=== PATIENT | female | born 1975 | race Caucasian/White ===

== ENCOUNTER 2023-04-27 00:53 | Emergency (ER) | payer BC ==
[~2023-04-27] VITALS: Ht 157.5 cm; Wt 109.0 kg
[2023-04-27 01:11] VITALS: BP 158/83; PULSE 82; TEMP 98.5; O2SAT 99
[2023-04-27] MEDS ORDERED: NEOM1OIN8 TOP (02:57)
[2023-04-27] MEDS ORDERED: CEPH-585 PO (02:57)
[2023-04-27] MEDS: cephalexin 250mg capsule PO ONE (03:30)
[2023-04-27] MEDS: HYDROcodone/acetaminophen 5mg/325mg tablet PO ONE (03:30)
[2023-04-27] MEDS: TETanus/Pertussis (Acell)/Diphther VAC/PF (Tdap-Adult) 0.5ml syringe IMVAC ONE (03:31)
[2023-04-27] MEDS: gentamicin 0.1% topical ointment 15gm TP SCH (03:32)
[2023-04-27 03:33] VITALS: RESP 18
== END 2023-04-27 03:36 | disposition home or self-care (01) ==
LOC: ER 00:56
DX: T25.231A Burn of second degree of right toe(s) (nail), initial encounter (principal); Z88.0 Allergy status to penicillin; Z79.2 Long term (current) use of antibiotics; X12.XXXA Contact with other hot fluids, initial encounter; Y93.89 Activity, other specified; Y92.89 Other specified places as the place of occurrence of the external cause; Y99.8 Other external cause status
CPT/HCPCS: 16000; 90471; 90715; 99284

== ENCOUNTER 2023-07-10 16:56 | Emergency (ER) | payer BC ==
[~2023-07-10] VITALS: Ht 160 cm; Wt 107.3 kg
[~2023-07-10 16:56] MED LIST: CEPH-585 PO; NEOM1OIN8 TOP
[2023-07-10 17:15] VITALS: BP 169/86; PULSE 74; RESP 16; TEMP 97.6; O2SAT 98
== END 2023-07-10 19:06 | disposition home or self-care (01) ==
LOC: ER 16:57
DX: S93.601A Unspecified sprain of right foot, initial encounter (principal); Z88.0 Allergy status to penicillin; Z79.2 Long term (current) use of antibiotics; W01.0XXA Fall on same level from slipping, tripping and stumbling without subsequent striking against object, initial encounter; Y93.89 Activity, other specified; Y92.89 Other specified places as the place of occurrence of the external cause; Y99.8 Other external cause status
CPT/HCPCS: 73630; 99283

== ENCOUNTER 2024-01-03 14:28 | Emergency (ER) | payer BC ==
[~2024-01-03] VITALS: Ht 157.5 cm; Wt 108.7 kg
[2024-01-03] MEDS ORDERED: IBUP-864 PO (15:17)
[2024-01-03 15:23] VITALS: BP 146/84; PULSE 79; RESP 17; TEMP 98; O2SAT 99
== END 2024-01-03 15:24 | disposition home or self-care (01) ==
LOC: ER 14:29
DX: S40.011A Contusion of right shoulder, initial encounter (principal); S40.012A Contusion of left shoulder, initial encounter; S80.02XA Contusion of left knee, initial encounter; Z88.0 Allergy status to penicillin; Z88.1 Allergy status to other antibiotic agents; Z79.2 Long term (current) use of antibiotics; W18.30XA Fall on same level, unspecified, initial encounter; Y93.89 Activity, other specified; Y92.89 Other specified places as the place of occurrence of the external cause; Y99.8 Other external cause status
CPT/HCPCS: 73030; 73564; 99284

== ENCOUNTER 2025-01-03 21:07 | Emergency (ER) | payer SELFPAY ==
[~2025-01-03 21:07] MED LIST changes: -CEPH-585 PO; +IBUP-864 PO
[2025-01-03 21:09] VITALS: BP 172/85; TEMP 98.2
--- NOTE | 2025-01-03 21:16 | Physician Documentation ---
History of Present Illness ~ Chief Complaint: Asthma Stated Complaint: ASTHMA ATTACK Time Seen by MD: 21:12 HPI 81-year-old female presents to the emergency department for evaluation of shortness of breath with a worsening for the last 3-4 days. She has a chronic smoker. Patient has known history of asthma and bleed to have COPD. She has been with the albuterol inhaler and/or nebulizer. Speaking in nearly complete sentences. No reported fever, recent travels or hospitalizations. Medication Reconciliation Allergies: Coded Allergies: Penicillins (Verified Allergy, Unknown, 07/10/23) Uncoded Allergies: PENICILLIN (Allergy, Unknown, 04/27/23) Scheduled Albuterol Sulfate (Ventolin Hfa), 2 PUFFS INH Q4HPRN Albuterol Sulfate Nebs* (Proventil Nebs*), 1 VIAL NEB Q6H Azithromycin (Zithromax), 1 TAB PO DAILY Ibuprofen (Ibu), 1 TAB PO Q8H Neomy Sulf/Bacitrac Zn/Poly (Triple Antibiotic Ointment), 1 APPLIC TOP TID Prednisone* (Prednisone*), 3 TAB PO DAILY Past Medical History Past Medical History: No Pertinent History Past Surgical History: noncontributory Alcohol Use: None Drug Use: none Lives with: Spouse Lives In: Home Review of Systems All Other Systems at this time: Reviewed and Negative Constitutional: Reports: malaise; Denies: chills, fever Respiratory: Reports: see HPI, cough, shortness of breath, SOB at rest Cardiovascular: Reports: no symptoms reported Gastrointestinal: Reports: no symptoms reported Physical Exam Vital Signs: RN Vital Signs have been reviewed: Yes, Temperature: 98.2, Source: Temporal, Heart Rate: 85, Respiratory Rate: 18, BP: 172/85, Pulse Oximetry: 97 Oxygen Flow Rate: 0 General Appearance: alert, WD/WN, mild distress Neck: normal inspection EENT: normal ENT inspection Respiratory: rhonchi, wheezing Chest: no accessory muscle use Cardiovascular: normal peripheral pulses Gastrointestinal: non-tender Extremities: normal inspection, no calf tenderness Skin: normal color Neurologic: oriented x4 Psychiatric: appropriate Progress Results/Orders Results/Orders Orders - REMINGTON PENA PAC * Rt Notification Q1H (01/03/25 21:14) Chest,Single View (01/03/25 21:20) Completed Orders - BECKY,REMINGTON C PAC Albuterol 2.5mg/3ml Nebule (Proventil 2. (01/03/25 21:15) Prednisone Tablet (Prednisone Tablet) (01/03/25 21:15) Azithromycin Tablet (Zithromax Tablet) (01/03/25 21:15) Chest,Single View (01/03/25 21:20) Medications Received in ER Medications (Trade) Dose Ordered Sig/John Route PRN Reason Start Time Stop Time Status Last Admin Dose Admin (Proventil 2.5 MG/3ML nebule) 2.5 mg ONCE ONCE NEB 01/03/25 21:15 01/03/25 21:18 DC 01/03/25 21:48 2.5 MG (predniSONE tablet) 60 mg ONCE ONCE PO 01/03/25 21:15 01/03/25 21:18 DC 01/03/25 21:33 60 MG (Zithromax tablet) 500 mg ONCE ONCE PO 01/03/25 21:15 01/03/25 21:18 DC 01/03/25 21:33 500 MG Vital Signs 01/03/25 01/03/25 01/03/25 21:09 21:48 22:07 Temp 98.2 Pulse 85 85 87 Resp 18 20 18 B/P (MAP) 172/85 Pulse Ox 97 96 96 O2 Delivery Room Air* Room Air* O2 Flow Rate 0 0 0 FiO2 21 21 Medical Decision Making Additional information obtaine: old records, family Findings 49-year-old female with a known history of reactive airway disease with worsening shortness breath over the last 24 days. Will initiate albuterol nebulizer therapy in the emergency department along with oral prednisone and azithromycin. Chest x-ray imaging obtained to evaluate for PNA other unforeseen pulmonary etiologies. Chest x-ray imaging without lobar infiltrates, effusion or pneumothoraces. Patient with increased forced expiratory volume after nebulization of albuterol. Received 1st dose prednisone & azithromycin and strcit aftercare prescriptions. She was discharged without hypoxia and/or acute shortness of breath. Discharged in safe stable condition with encouragement to continue with the efforts of smoking cessation. Heart Score: 0 Differential Dx:Considerations: Include: asthma (Working diagnosis), bronchitis (We will begin antibiotic therapy due to chronic smoking history), CHF (Unlikely), COPD (Likely), pneumonia, respiratory failure (Unlikely) Departure Disposition: HOME / SELF CARE / HOMELESS Impression: Primary Impression: Acute bronchitis Qualified Codes: J20.9 - Acute bronchitis, unspecified Additional Impressions: Asthma exacerbation Qualified Codes: J45.31 - Mild persistent asthma with (acute) exacerbation Asthma exacerbation in COPD Condition: Improved Discharge Instructions: Acute Bronchitis, Adult, Asthma Attack Prevention, Adult Additional Instructions: Today in the emergency department you received youth chest x-ray imaging which was reassuring for no pneumonia. You received 1st dose antibiotic and albuterol with the prednisone for suspected bronchitis with asthma exacerbation. Please obtain prescription with the pharmacy and begin as directed. Make follow up appointment with your primary care physician and/or return to the emergency department if symptoms worsen. Thank you for visiting emergency department [facility]. Referrals: NO PRIMARY CARE PROVIDER (PCP) Prescriptions Benzonatate* (Benzonatate*) 100 Mg Capsule 1-2 CAP PO Q6H PRN for cough, #30 CAP Prov: REMINGTON PENA 01/03/25 Prednisone* (Prednisone*) 20 Mg Tablet 3 TAB PO DAILY, #15 TAB Prov: REMINGTON PENA 01/03/25 Azithromycin (Zithromax) 250 Mg Tablet 1 TAB PO DAILY, #6 TAB azithromycin z pack as directed in packaging Prov: REMINGTON PENA 01/03/25 Albuterol Sulfate Nebs* (Proventil Nebs*) 2.5 Mg/0.5 Ml Vial.neb 1 VIAL NEB Q6H for shortness of breath for 30 Days, #60 ML Prov: REMINGTON PENA 01/03/25 Albuterol Sulfate (Ventolin Hfa) 90 Mcg Hfa.aer.ad 2 PUFFS INH Q4HPRN, #1 INHALER Prov: REMINGTON PENA 01/03/25 Education Educated: Patient, Family Educated regarding: diagnosis, treatment, prognosis Signature Scribe Signature: . Attestation: . REMINGTON PENA Jan 03, 2025 21:16
[2025-01-03 21:48] VITALS: PULSE 85; RESP 20; O2SAT 96
[2025-01-03] MEDS: albuterol 2.5 MG/3 ML nebule NEB ONE (21:48)
--- NOTE | 2025-01-03 21:50 | RADIOLOGY REPORT ---
CLINICAL HISTORY: SOB TECHNIQUE: Single view of the chest was obtained. COMPARISON: None FINDINGS: The heart size and pulmonary vasculature are normal. The lungs are clear. IMPRESSION: NO ACUTE CARDIOPULMONARY PROCESS.
[2025-01-03 22:07] VITALS: PULSE 87; RESP 18; O2SAT 96
[2025-01-03] MEDS ORDERED: PRED20TA PO (22:18)
[2025-01-03] MEDS ORDERED: ALBU18HF2 INH (22:18)
[2025-01-03] MEDS ORDERED: ALB0.5UD NEB (22:18)
[2025-01-03] MEDS ORDERED: AZIT-164 PO (22:18)
[2025-01-03] MEDS ORDERED: BENZ-38 PO (22:19)
== END 2025-01-03 22:28 | disposition home or self-care (01) ==
LOC: ER 21:07
DX: J20.9 Acute bronchitis, unspecified (principal); J45.901 Unspecified asthma with (acute) exacerbation; F17.200 Nicotine dependence, unspecified, uncomplicated; Z88.0 Allergy status to penicillin; Z79.899 Other long term (current) drug therapy
CPT/HCPCS: 71045; 94640; 99283; J7512; 94760

== ENCOUNTER 2025-01-26 23:19 | Emergency (ER) | payer MEDICAID ==
[~2025-01-26] VITALS: Ht 160 cm; Wt 110.0 kg
[~2025-01-26 23:19] MED LIST changes: +ALB0.5UD NEB; +ALBU18HF2 INH; +BENZ-38 PO; +PRED20TA PO
[2025-01-27 00:48] LABS: MEAN PLATELET VOLUME 9.1 FL (7.4-10.4); RED CELL DISTRIBUTION WIDTH 14.6 % (11.5-14.5)
[2025-01-27 01:08] LABS: CREATININE 0.70 MG/DL (0.40-0.90); PRO BRAIN NATRIURETIC PEPTIDE 57 PG/ML (0-125); TOTAL CARBON DIOXIDE 28.6 MMOL/L (24-32); eCRCL 80 ML/MIN; eGFR 89 ML/MIN
--- NOTE | 2025-01-27 01:15 | RADIOLOGY REPORT ---
Procedure: DI CHEST,TWO VIEWS 01/26/2025 11:54 PM Indication: shortness of breath Comparison: DI CHEST,SINGLE VIEW on DOS: 01/03/25 TECHNIQUE: DI CHEST,TWO VIEWS FINDINGS/IMPRESSION: The lungs are clear. The cardiomediastinal silhouette is unremarkable. No pleural effusion or pneumothorax. No acute osseous abnormality.
--- NOTE | 2025-01-27 02:08 | Physician Documentation ---
History of Present Illness ~ Chief Complaint: Shortness of Breath Stated Complaint: RIGHT SIDED ABDOMINAL PAIN Time Seen by MD: 02:01 HPI Patient presents to the emergency room with right upper quadrant pain that has been going on for three days. Patient is prior cholecystectomy. No fevers. Bowel movements regular as his urine. No nausea. Medication Reconciliation Allergies: Coded Allergies: Penicillins (Verified Allergy, Unknown, 07/10/23) Uncoded Allergies: PENICILLIN (Allergy, Unknown, 04/27/23) Scheduled Albuterol Sulfate (Ventolin Hfa), 2 PUFFS INH Q4HPRN Albuterol Sulfate Nebs* (Proventil Nebs*), 1 VIAL NEB Q6H Ibuprofen (Ibu), 1 TAB PO Q8H Neomy Sulf/Bacitrac Zn/Poly (Triple Antibiotic Ointment), 1 APPLIC TOP TID Prednisone* (Prednisone*), 3 TAB PO DAILY Scheduled PRN Benzonatate* (Benzonatate*), 1-2 CAP PO Q6H PRN for cough Discontinued Medications Azithromycin (Zithromax), 1 TAB PO DAILY Discontinued Reason: Auto Discontinued Past Medical History Past Medical History: No Pertinent History Past Surgical History: noncontributory Alcohol Use: None Drug Use: none Lives with: Spouse Lives In: Home Review of Systems ROS All review of systems negative except as per HPI Physical Exam Vital Signs: Temperature: 98.6, Source: Temporal, Heart Rate: 90, Respiratory Rate: 15, BP: 158/74, Pulse Oximetry: 98, Weight: 110.000 Physical Exam General: Patient is awake, alert, oriented x4 in no acute distress Head: Normocephalic and atraumatic. Eyes: Conjunctival normal. EOMI. PERRL. ENT: Mucous membranes moist. Neck: Supple, trachea is midline. Chest: Clear to auscultation bilaterally without rales, rhonchi, or wheezes. There is no accessory muscle use or retractions. Cardiac: RRR without murmurs, gallops, or rubs. Abd: Soft, nondistended, tenderness to palpation to right upper quadrant. No peritonitis Progress Results/Orders Results/Orders Orders - DEEP SAN MD Chest,Two Views (01/26/25 23:54) Culture Blood (01/26/25 23:48) Saline Lock (01/26/25 23:48) Oxygen (01/26/25 23:48) Ct Abdomen Pelvis (01/27/25 02:04) Completed Orders - DEEP SAN MD Chest,Two Views (01/26/25 23:54) Cbc/Diff (01/26/25 23:48) PBNP (01/26/25 23:48) Lacticsepsis (01/26/25 23:48) Ct Abdomen Pelvis (01/27/25 02:04) Procalcitonin (01/27/25 02:04) Ibuprofen Tablet (Motrin Tablet) (01/27/25 02:05) CMP (01/26/25 23:58) Hcg Serum Ql (01/27/25 02:41) Ua W/Microscopic, Cult If Ind (01/27/25 02:55) Medications Received in ER Medications (Trade) Dose Ordered Sig/John Route PRN Reason Start Time Stop Time Status Last Admin Dose Admin (Motrin tablet) 600 mg ONCE ONCE PO 01/27/25 02:05 01/27/25 02:07 DC 01/27/25 02:28 600 MG Vital Signs 01/26/25 01/27/25 01/27/25 23:45 01:30 02:29 Temp 98.6 98.6 Pulse 90 82 Resp 15 16 B/P (MAP) 158/74 124/76 (92) Pulse Ox 98 96 O2 Flow Rate 0 Laboratory Tests Test 01/26/25 23:58 01/27/25 02:49 01/27/25 02:55 White Blood Count 25.0 H Red Blood Count 4.14 L Hemoglobin 12.8 Hematocrit 37.3 Mean Corpuscular Volume 90.1 Mean Corpuscular Hemoglobin 31.0 Mean Corpuscular Hemoglobin Concent 34.4 Red Cell Distribution Width 14.6 H Platelet Count 418 Mean Platelet Volume 9.1 Neutrophils (%) (Auto) 66.6 Lymphocytes (%) (Auto) 23.6 Monocytes (%) (Auto) 7.1 Eosinophils (%) (Auto) 1.8 Basophils (%) (Auto) 0.9 Neutrophils # (Auto) 16.6 H Lymphocytes # (Auto) 5.9 H Monocytes # (Auto) 1.8 H Eosinophils # (Auto) 0.5 Basophils # (Auto) 0.2 CBC Comment Sodium Level 141 Potassium Level 3.6 Chloride Level 104 Carbon Dioxide Level 28.6 Anion Gap 8 Blood Urea Nitrogen 15 Creatinine 0.70 Estimated GFR/1.73 m2 89 BUN/Creatinine Ratio 21.4 H Glucose Level 216 H Lactic Acid Level 1.7 Calcium Level 8.6 Total Bilirubin 0.2 Aspartate Amino Transf (AST/SGOT) 10 Alanine Aminotransferase (ALT/SGPT) 19 Alkaline Phosphatase 94 Pro-B-Type Natriuretic Peptide 57 Total Protein 6.8 Albumin 3.0 L Globulin 3.8 Albumin/Globulin Ratio 0.8 L Procalcitonin < 0.05 Chemistry Comments Human Chorionic Gonadotropin, Qual Negative Urine Specimen Description Cln catch midstream Urine Color Yellow Urine Clarity Clear Urine pH 6.0 Urine Specific Mio >=1.030 Urine Protein 30 H Urine Glucose (UA) 100 H Urine Ketones Negative Urine Occult Blood Negative Urine Nitrite Negative Urine Bilirubin Negative Urine Urobilinogen 0.2 Urine Leukocyte Esterase Negative Urine RBC None seen Urine WBC 0-4 Urine Squamous Epithelial Cells Few Urine Calcium Oxalate Crystals 3+ Urine Bacteria Few Urine Mucus Moderate Urine Culture Indicated Not ind Volume Urine Centrifuged 10 ml Urine Comment Microbiology Date/Time Source Procedure Growth Status 01/27/25 00:03 Blood Arm Right Blood Culture - Preliminary NEGATIVE (LESS THAN 24 HOURS) Resulted Medical Decision Making Additional information obtaine: N/A Findings Patient presents to the emergency room for evaluation of right upper quadrant pain. Differentials include but are not limited to cholecystitis diverticulitis musculoskeletal pain, referred pain, shingles, intra-abdominal infection therefore emergent labs and imaging indicated. CT scan shows no acute findings. Labs reassuring. Unknown cause for patient's pain. ER precautions discussed. Heart Score: 0 Differential Dx:Considerations: Include: anxiety, asthma, bronchitis, cardiogenic shock, CHF, COPD, dysrhythmia, hypertension, accelerated, hypertension, essential, hypertension, malignant, hyperventilation, hyponatremia, myocardial infarction, panic attack, pneumonia, pneumonitis, pneumothorax, PSVT, pulmonary embolism, respiratory distress, respiratory failure, sinusitis, upper resp. infection, other Departure Disposition: 01 HOME / SELF CARE / HOMELESS Impression: Primary Impression: Abdominal pain Condition: Stable Discharge Instructions: Abdominal Pain, Women Referrals: NO PRIMARY CARE PROVIDER (PCP) Signature Scribe Signature: No scribe Attestation: The note accurately reflects work and decisions made by me.Deep San MD 01/27/25 04:25 DEEP SAN MD Jan 27, 2025 02:08
[2025-01-27] MEDS: ibuprofen tablet 400 MG TABLET PO ONE (02:28)
[2025-01-27 02:29] VITALS: BP 124/76; PULSE 82; RESP 16; TEMP 98.6; O2SAT 96
[2025-01-27 03:14] LABS: HCG SERUM QL NEGATIVE
[2025-01-27 03:28] LABS: LEUKOCYTE ESTERASE ,URINE NEGATIVE (Neg); NITRITES, URINE NEGATIVE (Neg); OCCULT BLOOD,URINE NEGATIVE (Neg)
[2025-01-27 03:30] LABS: UA COLLECTION TYPE CLN CATCH MIDSTREAM
[2025-01-27 03:35] LABS: MUCUS STRANDS MODERATE /LPF (Neg); SQUAMOUS EPITHELIAL CELL,UR FEW /LPF (FEW)
[2025-01-27 03:36] LABS: CAL OXALATE CRYSTALS 3+ /HPF (NEGATIVE)
--- NOTE | 2025-01-27 04:00 | RADIOLOGY REPORT ---
Exam: CT CT ABDOMEN PELVIS History: right sided abd pain Comparison Study: None TECHNIQUE: Multidetector CT of the abdomen and pelvis was performed from lung bases to pubic symphysis. Imaging was performed without IV contrast. Axial, coronal and sagittal multiplanar reformats were obtained from the axial data set by the technologist. Radiation optimization: All CT scans at this facility use at least one of these dose optimization techniques: automated exposure control mA and/or kV adjustment per patient size (includes targeted exams where dose is matched to clinical indication) or iterative reconstruction. Radiation Dose Information: CT Dose: CTDI volume is 44.8 mGy. Dose-length product is 2571.8 mGy*cm FINDINGS: Evaluation of solid organs is limited due to lack of intravenous contrast use. Imaged portions of the lung bases appear unremarkable. The liver, pancreas appear unremarkable. The left adrenal gland appears normal. The right adrenal gland measures 4.7 x 3.9 cm containing macroscopic fat. The spleen appears absent splenules or splenosis in the left upper quadrant. The kidneys appear unremarkable. No evidence of bowel obstruction or focal bowel wall thickening. The appendix appears normal. No free fluid, free air, or adenopathy. The uterus is anteverted. Physiologic appearing left ovarian cyst. Small fat containing umbilical hernia. No suspicious osseous lesion. IMPRESSION: 1. No acute abdominal or pelvic finding. 2. 4.7 cm benign right adrenal myelolipoma. No evidence of current hemorrhage. Given size, nonemergent surgical consultation regarding follow-up or excision is recommended.
== END 2025-01-27 05:33 | disposition home or self-care (01) ==
LOC: ER 23:19
DX: R10.11 Right upper quadrant pain (principal); R06.02 Shortness of breath; Z90.49 Acquired absence of other specified parts of digestive tract; Z88.0 Allergy status to penicillin
CPT/HCPCS: 36415; 71046; 74176; 80048; 80053; 81001; 83605; 83880; 84145; 84703; 85025; 87040; 99284